=== PATIENT | male | born 1980 | race American Indian/Alaskan Native ===

== ENCOUNTER 2018-08-16 07:20 | Emergency (ER) | payer OTHER ==
[2018-08-16 07:39] VITALS: BP 124/84; PULSE 72; TEMP 98.8; BMI 26.9
--- NOTE | 2018-08-16 08:11 | PDOC ---
History of Present Illness - General Chief Complaint: Back Pain Stated Complaint: BACK PAIN Time Seen by Provider: 08/16/18 08:05 History Source: Patient Exam Limitations: No Limitations - History of Present Illness Initial Comments: 08/16/18 08:24 Patient is a 38-year-old male with no past medical history, who presents to the emergency department today for low back pain. Patient states that he was doing yard work on Thursday. He woke up with the pain yesterday and it proceeded to get worse over the course of yesterday and today. He states that the pain is on the left side and goes down to his left buttock. Denies fevers, chills, trauma, vital anesthesia, bladder/bowel incontinence, weakness or tingling to the extremities. Patient states that he took a muscle relaxer this morning. Past History - Travel Traveled outside of the country in the last 30 days: No Close contact w/someone who was outside of country & ill: No - Past Medical History Allergies/Adverse Reactions: Allergies Allergy/AdvReac Type Severity Reaction Status Date / Time No Known Allergies Allergy Verified 08/16/18 07:36 Home Medications: Ambulatory Orders Cyclobenzaprine HCl [Flexeril -] 10 mg PO HS #10 tablet 08/16/18 Ibuprofen 800 mg PO TID #30 tablet 08/16/18 COPD: No CHF: No - Suicide/Smoking/Psychosocial Hx Smoking History: Current every day smoker Number of Cigarettes Smoked Daily: 10 Information on smoking cessation initiated: Yes 'Breaking Loose' booklet given: 08/16/18 Review of Systems - Review of Systems Able to Perform ROS?: Yes Comments:: 08/16/18 08:10 CONSTITUTIONAL: Absent: fever, chills, diaphoresis, generalized weakness, malaise, loss of appetite GASTROINTESTINAL: Absent: abdominal pain, abdominal distension, nausea, vomiting, diarrhea, constipation, melena, hematochezia GENITOURINARY: Absent: dysuria, frequency, urgency, hesitancy, hematuria, flank pain, genital pain MUSCULOSKELETAL: Present: low back pain Absent: arthralgia, joint swelling SKIN: Absent: rash, itching, pallor NEUROLOGIC: Absent: headache, focal weakness or paresthesias, dizziness, unsteady gait, seizure, mental status changes, bladder or bowel incontinence PSYCHIATRIC: Absent: anxiety, depression, suicidal or homicidal ideation, hallucinations. Is the patient limited Thai proficient: No *Physical Exam - Vital Signs Last Vital Signs Temp Pulse Resp BP Pulse Ox 98.8 F 72 18 124/84 100 08/16/18 07:36 08/16/18 07:36 08/16/18 07:36 08/16/18 07:36 08/16/18 07:36 - Physical Exam Comments: 08/16/18 08:11 GENERAL: Well developed, well nourished. Awake and alert. No acute distress. HEENT: Normocephalic, atraumatic. PERRLA, EOMI. No conjunctival pallor. Sclera are non- icteric. Moist mucous membranes. Oropharynx is clear. NECK: Supple. Full ROM. No JVD. Carotid pulses 2+ and symmetric, without bruits. No thyromegaly. No lymphadenopathy. MUSCULOSKELETAL TTP of the L4-L5 paraspinous muscles to the L side with palpable knot. (-) straight leg raise. Normal range of motion at all joints. No bony deformities or tenderness. No CVA tenderness. EXTREMITIES: No cyanosis. No clubbing. No edema. No calf tenderness. SKIN: Warm and dry. Normal capillary refill. No rashes. No jaundice. NEUROLOGICAL: Alert, awake, appropriate. Cranial nerves 2-12 intact. No deficits to light touch and temperature in face, upper extremities and lower extremities. No motor deficits in the in face, upper extremities and lower extremities. Normoreflexic in the upper and lower extremities. Normal speech. Toes are down- going bilaterally. Gait is normal without ataxia. PSYCHIATRIC: Cooperative. Good eye contact. Appropriate mood and affect. Medical Decision Making - Medical Decision Making 08/16/18 08:11 Patient is a 38-year-old male who presents emergency department for left-sided low back pain status post yard work on Thursday. -Pt with TTP of the L paraspinous muscles, L4-L5, with palpable knot consistent with muscle spasm. -No trauma, or fever. No saddle anesthesia or bladder/bowel incontinence. No CVA tenderness. -Pt is neurologically intact on exam with no focal findings. -Toradol given with relief of symptoms -DC home. Ortho follow up given for if symptoms do not resolve. -I discussed the physical exam findings, ancillary test results and final diagnoses with the patient. I answered all of the patient's questions. The patient was satisfied with the care received and felt comfortable with the discharge plan and treatment plan. The Patient agrees to follow up with the primary care physician/specialist within 24-72 hours. Return precautions were given. *DC/Admit/Observation/Transfer Diagnosis at time of Disposition: Low back pain Qualifiers: Chronicity: acute Back pain laterality: left Sciatica presence: without sciatica Qualified Code(s): M54.5 - Low back pain - Discharge Dispostion Disposition: HOME Condition at time of disposition: Stable Decision to Admit order: No - Referrals Referrals: Carson Sellers MD [Staff Physician] - - Patient Instructions Printed Discharge Instructions: DI for Low Back Pain Additional Instructions: You have low back pain due to a muscle spasm. Please take ibuprofen 800 mg 3 times a day not to exceed 3000 mg a day. You were also prescribed Flexeril. Please take this medication every 8 hours for the first day. Then take the medication before you go to bed. Do not drive after taking this medication as it may make you sleepy. You may use warm compresses on your back to help with her symptoms. Please follow-up with your primary care doctor. If your symptoms do not resolve in 3-5 days, follow-up with orthopedics. A referral has been provided for you. Return to the emergency department if you have worsening back pain, bladder or bowel incontinence, numbness and tingling in her legs, changes in the way you walk, or any new or worsening symptoms. - Post Discharge Activity Forms/Work/School Notes: Back to Work
[2018-08-16] MEDS ORDERED: KETOROLAC TROMETHAMINE 60 MG/2 ML VIAL IM ONE (08:22)
== END 2018-08-16 08:32 | disposition home or self-care (01) ==
LOC: JERFT 07:20 → JER 07:20 → JERFT 08:32
PROC: 3E0233Z Introduction of Anti-inflammatory into Muscle, Percutaneous Approach (ICD-10-PCS; principal; 2018-08-16)
DX: M62.830 Muscle spasm of back (principal); M54.5 Low back pain
CPT/HCPCS: 96372; 99281-25

== ENCOUNTER 2021-02-11 00:20 | Emergency (ER) | payer OTHER ==
[2021-02-11 01:03] VITALS: BP 139/87; PULSE 88; TEMP 98.2; BMI 28.2
[2021-02-11] MEDS ORDERED: LIDOCAINE 5% TOPICAL PATCH TP ONE (01:06)
[2021-02-11] MEDS ORDERED: METHOCARBAMOL 500 MG TABLET PO ONE (01:06)
[2021-02-11] MEDS ORDERED: LIDOCAINE 5% TOPICAL PATCH ONE (01:18)
[2021-02-11] MEDS ORDERED: METHOCARBAMOL 500 MG TABLET ONE (01:18)
[2021-02-11] MEDS ORDERED: IBUPROFEN 600 MG TABLET (FP) PO ONE ×2 (01:35→01:46)
[2021-02-11] MEDS ORDERED: ACETAMINOPHEN 500 MG TABLET (FP) PO ONE (01:35)
[2021-02-11] MEDS ORDERED: ACETAMINOPHEN 325 MG TABLET (FP) ONE (01:46)
[2021-02-11] MEDS ORDERED: LIDOCAINE PATCH REMOVAL MC ONE (13:00)
== END 2021-02-11 02:06 | disposition home or self-care (01) ==
LOC: JER 00:20
DX: M54.5 Low back pain (principal)
CPT/HCPCS: 99284-25

== ENCOUNTER 2023-11-16 00:41 | Emergency (ER) | payer OTHER ==
[2023-11-16 00:46] VITALS: RESP 18; BMI 29.5
[2023-11-16 01:43] LABS: EPI CELLS 1 /uL (0-25.1); HYALINE CASTS 0 /uL (0-3.1); URINE APPEARANCE CLOUDY; URINE BACTERIA 41 /uL (0-1359); URINE BILIRUBIN NEGATIVE (NEGATIVE); URINE COLOR YELLOW; URINE GLUCOSE (UA) NEGATIVE (NEGATIVE); URINE KETONE NEGATIVE (NEGATIVE); URINE LEUK ESTERASE 3+ (NEGATIVE); URINE NITRITE NEGATIVE (NEGATIVE); URINE PROTEIN 1+ (NEGATIVE); URINE RBC 249 /uL (0-23.9); URINE WBC 5828 /uL (0-25.8)
[2023-11-16] MEDS ORDERED: SULFAMETHOXAZOLE/TRIMETHOPRIM 800MG/160MG D.S. TABLET PO ONE (01:56)
[2023-11-16] MEDS ORDERED: DOXYCYCLINE HYCLATE 100 MG CAPSULE PO ONE ×2 (02:07→03:03)
[2023-11-16 02:35] LABS: HEMATOCRIT 44.5 % (35.4-49); HEMOGLOBIN 15.6 GM/dL (11.7-16.9); MCHC 35.1 g/dl (32.0-35.9); MEAN CELL VOLUME 91.1 fl (80-96); MEAN PLT VOLUME 7.9 fl (7.5-11.1); PLATELET COUNT 354 10^3/uL (134-434); RBC 4.89 M/mm3 (4.00-5.60); RDW 13.1 % (11.9-15.9)
[2023-11-16 02:54] LABS: POTASSIUM 4.3 mmol/L (3.5-5.1)
[2023-11-16 02:56] LABS: CALCIUM 8.9 mg/dL (8.5-10.1)
[2023-11-16 02:57] LABS: ALBUMIN 3.5 g/dl (3.4-5.0); BLOOD UREA NITROGEN 18.5 mg/dL (7-18)
[2023-11-16 03:02] LABS: BILIRUBIN,TOTAL 0.4 mg/dL (0.2-1); TOT PROT 6.9 g/dl (6.4-8.2)
[2023-11-16] MEDS ORDERED: SULFAMETHOXAZOLE/TRIMETHOPRIM 800MG/160MG D.S. TABLET ONE (03:03)
[2023-11-16] MEDS ORDERED: cefTRIAXone SODIUM 1 GM VIAL ONE (03:06)
[2023-11-16 03:50] LABS: HIV INTERPRETATION NEGATIVE (NEGATIVE)
[2023-11-16 04:09] VITALS: BP 144/95; PULSE 79; TEMP 98.5
[2023-11-16 04:29] LABS: SYPHILIS W/ RPR CONF NON-REACTIVE (NONREACTIVE)
== END 2023-11-16 04:12 | disposition home or self-care (01) ==
LOC: JER 00:41
DX: M54.50 Low back pain, unspecified (principal); A64 Unspecified sexually transmitted disease; R36.9 Urethral discharge, unspecified; R50.9 Fever, unspecified; R31.9 Hematuria, unspecified; N39.0 Urinary tract infection, site not specified
CPT/HCPCS: 36415; 80053; 81003; 85027; 86704; 86780; 86803; 87086; 87340; 87389; 87491; 87517; 87591; 87661; 99284-25